=== PATIENT | female | born 1965 | race Caucasian/White ===

== ENCOUNTER 2016-02-25 16:37 | Emergency (ER) | payer SELFPAY ==
[~2016-02-25] VITALS: Ht 165.1 cm; Wt 59.0 kg
[2016-02-25] MEDS ORDERED: Norco 5mg/325mg tab ORAL ONE (17:00)
[2016-02-25] MEDS ORDERED: IBUPROFEN600 MG ORAL (17:36)
[2016-02-25 17:57] VITALS: BP 103/71
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
--- NOTE | 2016-02-26 13:31 | Diagnostic Imaging Report ---
Indication: Pain Comparison: None Findings: 3 views of the left ankle obtained. No acute fracture, malalignment, periostitis, or osteochondral defects are identified. Soft tissues are unremarkable. Impression: No acute findings
--- NOTE | 2016-02-26 13:31 | Diagnostic Imaging Report ---
Indication: Pain Comparison: None Findings: 3 views of the left foot were obtained. No acute fractures, malalignment, erosions or periostitis are identified. Bone mineralization is within normal limits. Soft tissues are unremarkable. Impression: No acute findings
== END 2016-02-25 18:01 | disposition home or self-care (01) ==
LOC: EDBD 16:37 → EMR 17:56
DX: S90.32XA Contusion of left foot, initial encounter (principal); V09.1XXA Pedestrian injured in unspecified nontraffic accident, initial encounter; Y92.9 Unspecified place or not applicable
CPT/HCPCS: 99284